=== PATIENT | female | born 2000 | race Caucasian/White ===

== ENCOUNTER 2021-10-17 09:31 | Outpatient (REF) | payer OTHER, BC, SELFPAY ==
[2021-10-17 09:43] LABS: MANUAL DIFF FLAG NO
[2021-10-17 10:23] LABS: Basophils Percent Auto 0.4 % (0-2); Eosinophils Absolute Auto 0.3 X10*3/uL (0.0-0.4); Eosinophils Percent Auto 3.7 % (0-4); Hematocrit 40.2 % (37.0-47.0); Hemoglobin 13.5 g/dl (12.0-16.0); Imm Gran Abs Auto 0.03 X10*3/uL (0.00-0.03); Imm Gran Pct Auto 0.4 % (0.0-0.4); Lymphocytes Absolute Auto 2.1 X10*3/uL (1.2-4.9); Mean Corpuscular HGB Conc 33.6 g/dl (31.0-35.0); Mean Corpuscular Hemoglobin 30.8 pg (27.0-33.0); Mean Corpuscular Volume 91.6 fL (80.0-98.0); Mean Platelet Volume 12.2 fL (9.4-12.3); Monocytes Absolute Auto 0.5 X10*3/uL (0.1-1.2); Neutrophils Absolute Auto 4.6 x10*3/uL (2.0-8.3); Neutrophils Percent Auto 60.5 % (45-73); Platelet Count 246 X10*3/uL (160-400); Red Blood Count 4.39 X10*6/uL (4.20-5.50); Red Cell Distribution Width 11.8 % (11.0-16.0); White Blood Count 7.6 X10*3/uL (4.8-10.8)
[2021-10-17 11:14] LABS: Alanine Aminotransferase 11 U/L (0-31); Albumin Level 4.4 g/dL (3.5-5.0); Alkaline Phosphatase 68 U/L (39-117); Anion Gap 13 (12-20); Aspartate Amino Transferase 15 U/L (5-31); Bilirubin Total 0.4 mg/dL (0.0-1.0); Blood Urea Nitrogen 13 mg/dL (9-16); Calcium 9.3 mg/dL (8.4-10.2); Carbon Dioxide 24 mmol/L (22-29); Chloride 106 mmol/L (96-108); Cholesterol 178 mg/dL; Estimated Glomerular Filt Rate > 60; Glucose Fasting 85 mg/dL (60-99); HDL Cholesterol 63 mg/dL; LDL Cholesterol Calculated 95 mg/dl; Sodium 139 mmol/L (135-145); Triglycerides 104 mg/dL
[2021-10-17 11:18] LABS: HIV AB/AG Nonreactive (Nonreactive); HIV Num 1 0.06 S/CO (0.00-0.99)
[2021-10-17 11:22] LABS: TSH reflex Free T4 0.82 uIU/mL (0.32-4.0)
[2021-10-17 11:33] LABS: ~HepC Num1 0.24 S/CO (0.00-0.79); ~Hepatitis C Antibody Nonreactive (Nonreactive)
== END 2021-10-17 09:32 | disposition home or self-care (01) ==
LOC: HO.LAB 09:31
PROVIDERS: Visit Provider Nurse Practitioner Family
DX: Z13.0 Encounter for screening for diseases of the blood and blood-forming organs and certain disorders involving the immune mechanism (principal); Z11.4 Encounter for screening for human immunodeficiency virus [HIV]; I10 Essential (primary) hypertension; E78.00 Pure hypercholesterolemia, unspecified; Z76.89 Persons encountering health services in other specified circumstances
CPT/HCPCS: 36415; 80053; 80061; 84443; 85025; 86803; 87389

== ENCOUNTER 2021-11-18 18:13 | Outpatient (REF) | payer OTHER, BC, SELFPAY ==
[2021-11-19 15:21] LABS: BV Int Neg Control Negative (Negative); BV Int Pos Control Positive (Positive)
== END 2021-11-18 18:14 | disposition home or self-care (01) ==
LOC: HO.LNP 18:13
PROVIDERS: Visit Provider Nurse Practitioner Family
DX: R30.0 Dysuria (principal); N89.8 Other specified noninflammatory disorders of vagina
CPT/HCPCS: 87086; 87480; 87510; 87660

== ENCOUNTER 2022-05-23 09:10 | Outpatient (REF) | payer OTHER, BC, SELFPAY ==
--- NOTE | ~2022-05-23 | US_ITS ---
EXAMINATION: US DIAGNOSTIC ULTRASOUND BREAST, RIGHT CLINICAL INFORMATION: 21-year-old female with recent focal redness lower outer right breast with some drainage. Symptoms improved. No prior imaging. Family history premenopausal breast cancer mother, other family members with breast cancer history. COMPARISON: None. TECHNIQUE: Ultrasound right breast is targeted to the area of clinical concern lower outer right breast. Grayscale imaging and color Doppler are performed without and with harmonics. FINDINGS: The site of clinical concern corresponds to a small discoid-shaped intradermal hypoechoic area measuring just under 2 mm in thickness and 5 x 7 mm across. Lesion is parallel with the skin. There is no surrounding hyperemia. No subdermal extension. No cystic or solid mass or architectural abnormality or focal duct ectasia. No edema tracking in soft tissue planes. Results are discussed with the patient at time of visit. Patient is advised to follow-up with her recent health care provider. High-risk mammography screening options discussed as well as availability of genetic testing. US/US breast RT limited IMPRESSION: -Small residual intradermal discoid shaped lesion 2 x 5 x 7 mm. No hyperemia or subdermal extension. ASSESSMENT: BI-RADS 2: Benign RECOMMENDATION: -Clinical follow-up with recent health care provider. -Genetic testing consultation may be considered. High risk mammography screening as clinical risk factors warrant.
== END 2022-05-23 09:11 | disposition home or self-care (01) ==
LOC: HO.MAMMO 09:10
PROVIDERS: Visit Provider Physician Assistant
DX: R23.4 Changes in skin texture (principal); Z80.3 Family history of malignant neoplasm of breast
CPT/HCPCS: 76642

== ENCOUNTER 2022-07-19 00:45 | Emergency (ER) | payer OTHER, BC, SELFPAY ==
[2022-07-19 00:48] VITALS: BP 112/67; PULSE 82; RESP 18; TEMP 36.7; O2SAT 97; BMI 41.5
--- NOTE | 2022-07-19 01:42 | ED_ITS ---
HPI - General Adult General Chief complaint: General Medical Stated complaint: Belly button piercing infected Time Seen by Provider: 07/19/22 01:38 History of Present Illness HPI narrative: Patient is a 21-year-old female has a history of having a belly button ring. Complaining of redness surrounding that ring. There was some discharge her yesterday. There is no systemic complaints. Patient has no history diabetes. Has an allergy to sulfa drugs Related Data Home Medications Medication Instructions Recorded Confirmed levonorgestrel 20 mcg/24 hours (8 intrauterine 05/17/22 07/17/22 yrs) 52 mg intrauterine device (Mirena) diphenhydramine HCl 25 mg tablet 25 mg PO BEDTIME PRN 07/17/22 07/17/22 (Benadryl Allergy) Previous Rx's Medication Instructions Recorded citalopram 10 mg tablet 10 mg PO DAILY #30 tabs 07/17/22 clindamycin HCl 300 mg capsule 300 mg PO Q6H 7 days #28 caps 07/19/22 Allergies Allergy/AdvReac Type Severity Reaction Status Date / Time Sulfa (Sulfonamide Allergy Intermediate Hives Verified 07/19/22 00:53 Antibiotics) Review of Systems Review of Systems: Positive redness to the belly button ring. No systemic complaints Yes all other systems are reviewed and are negative PMFSH Past Medical History Attestation statement: The following information was validated with the patient. Medical History Encounter to establish care (~10/17/21) History of chlamydia Surgical History History of root canal procedure Family History Family History Mother Heart disease Ovarian cyst Breast cancer, Onset Age: 35 Father High blood pressure Paternal Grandmother Breast cancer, Onset Age: 70 Maternal Grandmother Lung cancer, Onset Age: 70 Other Cancer Mental health disorder Substance use disorder Social History Social History Housing: Apartment Alcohol intake: current Alcohol intake frequency: a few times a week Patient Tobacco Use Status: Current everyday Tobacco user Tobacco use type: Cigarette Cigarette Packs Per Day: 0.5 Cigarettes Per Day: 10 e-Cigarette/Vaping Use: Never Used Second Hand Smoke Exposure: Yes Advance Directives: No Advance Directives Information Provided: Yes service: No Current occupational status: employed 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 Oriented X3. No acute distress. Eyes: Pupils equal, round and reactive to light. ENT: Pharynx normal. Neck: Normal inspection. Neck supple. No lymph nodes noted. No crepitus CVS: Normal heart rate and rhythm. Pulses normal. Normal S1 and S2 Respiratory: No respiratory distress. Breath sounds normal. No Wheezing. No rales Abdomen: Soft and nontender. No rigidity. No distention. good BS x4 Skin: The bellybutton ring is in place. There is a surrounding area of erythe ma. There is no fluctuance noted. The size of the erythema approximately 1.5 cm x 1.5 cm in size. Extremities: No lower extremity edema. Neurovascular intact to all extremities. No Lacerations. No Rash Neuro: Oriented X 3. No motor deficit. No sensory deficit. Moving all extermities. No slurred speech Medical Decision Making MDM Narrative Medical decision making narrative: Likely cellulitis surrounding a belly button ring that is been there. The belly button ring was removed. Will start patient on clinda. Patient to be discharged home. In stable condition. No evidence of abscess at this time. No fluctuance is noted Discharge Plan Discharge Clinical Impression: Cellulitis Patient Disposition: Home, Self-Care Instructions: Cellulitis (ED), Warm Compress or Soak (ED) Prescriptions: New clindamycin HCl 300 mg capsule 300 mg PO Q6H 7 Days Qty: 28 0RF No Action diphenhydramine HCl [Benadryl Allergy] 25 mg tablet 25 mg PO BEDTIME PRN citalopram 10 mg tablet 10 mg PO DAILY Qty: 30 1RF Mirena 20 mcg/24 hours (7 yrs) 52 mg intrauterine device intrauterine Referrals: [facility] [Physician] - 07/21/22
== END 2022-07-19 01:55 | disposition home or self-care (01) ==
PROVIDERS: Emergency Provider Emergency Medicine Emergency Medical Services
DX: L03.316 Cellulitis of umbilicus (principal); F17.210 Nicotine dependence, cigarettes, uncomplicated
CPT/HCPCS: 99282; 99283

== ENCOUNTER 2024-03-11 10:10 | Outpatient (AMB) | payer OTHER, SELFPAY ==
--- NOTE | 2024-03-11 10:14 | A.OFFVIS_ITS ---
Vital Signs 03/11/24 10:15 Height 5 ft 6 in Weight 256 lb BMI 41.3 BP 110/60 Intake Visit Reasons: New patient consult Iud removal and reinsertion Director Of Laboratory Operations Required: No Information Interpreted: clinical only Plastic Boat Buffer: Plastic Boat Buffer Present Allergies Sulfa (Sulfonamide Antibiotics) Allergy (Intermediate, Verified 03/11/24 10:16) Hives Medication List - Last Reconciled 03/11/24 by Vita Velasquez CNM diphenhydramine HCl (Benadryl Allergy) 25 mg PO BEDTIME PRN levonorgestrel (Mirena) intrauterine Is last menstrual period known: Yes (02/13/24) Do you need a note to return to daycare/school/sports/work: No HPI HPI New patient consult Iud removal and reinsertion: Details: Patient is here to discuss possible Mirena replacement versus possibly using other methods of control. She has had the Mirena since she was 16 she is pretty sure it is a Mirena and not a Kyleena. She did not get her. For the 1st few years but she has been getting regular menses including premenstrual symptoms/emotional changes etc. for least the last couple of years some periods are heavier than others some periods are employment specialist but they are regular. She tried to get a replaced at the 5 year point but they told her that it was good for 7 years and she has had a lot of anxiety about it since. She has family history of breast cancer her mom had breast cancer and some of her other older relatives as well. She moved from [place] [facility] and it is too far to go back to where she was. She does not have any other major health issues. She is in the same relationship for the last 6 years has no concerns she is considering future childbearing but not now. [facility] Medical History Encounter to establish care (~10/17/21) History of chlamydia Surgical History History of root canal procedure Family History Mother Heart disease Ovarian cyst Breast cancer, Onset Age: 35 Father High blood pressure Paternal Grandmother Breast cancer, Onset Age: 70 Maternal Grandmother Lung cancer, Onset Age: 70 Other Cancer Mental health disorder Substance use disorder Social History Housing: Apartment Alcohol intake: current Alcohol intake frequency: a few times a week Patient Tobacco Use Status: Current everyday Tobacco user Tobacco use type: Cigarette Cigarette Packs Per Day: 0.5 Cigarettes Per Day: 10 e-Cigarette/Vaping Use: Never Used Second Hand Smoke Exposure: Yes service: No Current occupational status: employed 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 Cognitive needs: No Hearing needs: No Vision needs: Yes (glasses) Female Reproductive History Menstrual Age of Menarche: 13 Duration of menses: 3-5 days control method: progestin IUCD Total pregnancies: 0 History of abnormal pap smear: No (no previous pap) Physical Exam Vital Signs: Last Vital Signs BP 110/60 03/11/24 10:15 BMI result Body Mass Index 41.3 Assessment & Plan Assessment & Plan (1) Family history of breast cancer: Code(s): Z80.3 - Family history of malignant neoplasm of breast Category: Medical (2) control counseling: Code(s): Z30.09 - Encounter for other general counseling and advice on contraception Category: Medical (3) Obesity, morbid, BMI 40.0-49.9: Code(s): E66.01 - Morbid (severe) obesity due to excess calories Category: Medical (4) Cervical cancer screening: Comment: Plan for Pap smear with 6 week IUD check after we replace her IUD. Code(s): Z12.4 - Encounter for screening for malignant neoplasm of cervix Category: Medical (5) Presence of 52 mg levonorgestrel-releasing intrauterine device (IUD): Comment: Has it for about 7 years returned to regular menses with complete hormonal symptoms taught for the last 2 years schedule replacement with next menses. Code(s): Z97.5 - Presence of (intrauterine) contraceptive device Category: Social Hx Plan -I reviewed with the patient, all of the currently common used methods of control that are available. We reviewed how they work in the body, how they are taken, common side effects, uncommon side effects, precautions, and contraindications. -Discussed also factors that influence their effectiveness and use, and womens satisfaction with the method. -Discussed how each are used, and drawbacks of each method as well. -Methods covered included: condoms, control pills, control patches, control rings, Depo-Provera, Nexplanon, Mirena and Kyleena IUDs, and ParaGard IUDs. All of the above methods were covered in great detail including their side effect profiles and common experiences that women have and ways to mitigate against the negative experiences including attention to diet and exercise patient's with bleeding challenges that may occur her and efforts to time the initiation of the method to this start of the menstrual period. Also discussed screening and issues around her family history of breast cancer and she is going to investigate her family history some more and discuss it more with her primary care provider discussed possible genetic Screening as well Also discussed the relationship between weight and menses and all the possible issues with irregular bleeding and formation of cysts and the into relationship between hormones and obesity discussed that this is a great time in her life to work on the weight loss while she still is healthy. Also major early discussed the issues with the Mirena and its length of time for use and newer recommendations that it can be used for up to 8 years however the fact that she has returned to normal cycles with all of their hormonal fluctuations and symptoms indicates a high likelihood that she could be ovulating and I do not recommend that she depend on it anymore and she should use condoms until were able to replace it she was tearful during the visit and it is likely that she is going to be getting her menses very soon she feels like it might be coming in fact today if it does come today I recommend she call today and see if we can schedule a Mirena replacement for Thursday if it comes on the weekend she should call 1st thing Thursday morning but we would not be able to get her in Thursday but in any case use condoms until we are able to replace it as close to the start of her next menses as possible . She has never had a Pap smear in that can be done at the 6 week IUD check visit,. Coding Level of Care Code New Pt Level 4 (16828) Diagnoses Family history of breast cancer Z80.3 control counseling Z30.09 Obesity, morbid, BMI 40.0-49.9 E66.01 Cervical cancer screening Z12.4 Presence of 52 mg levonorgestrel-releasing intrauterine device (IUD) Z97.5
[2024-03-11 10:15] VITALS: BP 110/60; BMI 41.3
== END 2024-03-11 10:52 | disposition home or self-care (01) ==
LOC: HO.HWSM 10:10
PROVIDERS: PCP Internal Medicine; Visit Provider Advanced Practice Midwife
DX: Z80.3 Family history of malignant neoplasm of breast (principal); Z30.09 Encounter for other general counseling and advice on contraception; E66.01 Morbid (severe) obesity due to excess calories; Z12.4 Encounter for screening for malignant neoplasm of cervix; Z97.5 Presence of (intrauterine) contraceptive device
CPT/HCPCS: 99204

== ENCOUNTER → 2024-03-11 10:10 | Outpatient (BNVA) | payer OTHER, SELFPAY | PROVIDERS: PCP Internal Medicine; Visit Provider Advanced Practice Midwife ==

== ENCOUNTER 2024-10-13 09:31 | Outpatient (REF) | payer OTHER, SELFPAY ==
--- OUTSIDE RECORDS SUMMARY | 2024-10-13 12:29 | XMS_ITS | Encounter Summary ---
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 Procedure Name Priority Date/Time Associated Diagnosis Comments CHLAMYDIA TRACHOMATIS/N. GONORRHOEAE (GC) RNA, TMA (URINE) Routine 02/27/2017 11:15 AM EDT Screening for STD (sexually transmitted disease) HCG, TOTAL, QL Routine 02/27/2017 11:15 AM EDT Irregular menses documented in this encounter Results * Due to [place] [employer] law, this organization might not be sharing negative HIV tests. * CHLAMYDIA TRACHOMATIS/N. GONORRHOEAE (GC) RNA, TMA (URINE) (02/27/2017 11:15 AM EDT) Chlamydia trachomatis rRNA NOT DETECTED NOT DETECTED [facility] Neisseria Gonorrhoeae rRNA NOT DETECTED NOT DETECTED [facility] COMMENT SEE NOTE [facility] Comment: This test was performed using the APTIMA COMBO2 Assay ([employer].). The analytical performance characteristics of this assay, when used to test SurePath specimens have been determined by [employer]. 02/27/2017 11:1 5 AM EDT 02/28/2017 1:20 AM EDT Narrative Resulting Agency Comment [id number] us Sandrine Klejesus [facility] Final Resul t Performing Organization Address [facility] de Phone Number [facility] [address] [place] [address] * HCG, TOTAL, QL (02/27/2017 11:15 AM EDT) HCG, Qualitative (Screen) NEGATIVE [facility] Comment: Reference Range Non-: Negative : ? Positive 02/27/2017 11:1 5 AM EDT 02/28/2017 1:20 AM EDT Narrative Resulting Agency Comment [id number] us Sandrinealy [facility] SAME DAY RESULT Final R esult Performing Organization Address [facility] Co de Phone Number [facility] [address] [place] [address] documented in this encounter Visit Diagnoses Diagnosis Irregular menses Irregular menstrual cycle Screening for STD (sexually transmitted disease) Screening examination for venereal disease documented in this encounter Care Teams Cut Roll Machine Operator Relationship Specialty Start Date End Date Luis Carlos Huizar MD [facility] [address] [place] [address] PCP - General Pediatrics 05/15/15 02/20/20 Christa Macedo MD [facility] [address] [place] [address] PCP - General Pediatrics 02/21/20 documented as of this encounter
--- OUTSIDE RECORDS SUMMARY | 2024-10-13 12:29 | XMS_ITS | Encounter Summary ---
Author Organization [facility] Address [address] [place] [address] Care Team Providers Care Pipe Finisher Name Role Phone Luis Carlos Huizar MD Primary Care Provider [phone] Christa Macedo MD Primary Care Provider [phone] Encounter Details Date Type Department Care Team (Late st Contact Info) Description 04/06/2017 Orders Only [place] DOOR TO DOOR LEAD GENERATION [address] [place] [address] Sandrine Edgar CRNP [address] [place] [address] Social History Tobacco Use Types Packs/Day Years [...] of this encounter Procedures * Due to [facility] law, this organization might not be sharing negative HIV tests. Procedure Name Priority Date/Time Associated Diagnosis Comments BV/VAGINITIS PANELDNA PROBE(AFFIRM) Routine 04/06/2017 4:44 PM EDT Vaginal odor documented in this encounter Results * Due to [place] [employer] law, this organization might not be sharing [...] 11:34 PM EDT Narrative Resulting Agency Comment [id number] us Sandrine [facility] Final Resul t Performing Organization Address City/State/[facility] Co de Phone Number [facility] [address] [place] [address] documented in this encounter Visit Diagnoses Diagnosis Vaginal odor Unspecified symptom associated with female genital organs documented in this encounter Care Teams Pipe Finisher Relationship Specialty Start Date End Date Luis Carlos Huizar MD [facility] [address] [place] [address] PCP - General Pediatrics 05/15/15 02/20/20 Christa Macedo MD [facility] [address] [place] [address] PCP - General Pediatrics 02/21/20 documented as of this encounter
--- OUTSIDE RECORDS SUMMARY | 2024-10-13 12:29 | XMS_ITS | Clinical Summary ---
Author Organization [facility] Address [address] [place] [address] Care Team Providers Care Supervisor Fireworks Assembly Name Role Phone Christa Macedo MD Primary Care Provider [phone] Allergies Active Allergy Reactions Criticality Noted Date [...] complete this topic Procedures * Due to [place] [employer] law, this organization might not be sharing negative HIV tests. Procedure Name Priority Date/Time Associated Diagnosis Comments CHLAMYDIA TRACHOMATIS/N. GONORRHOEAE (GC) RNA, TMA (URINE) Routine 02/21/2020 6:26 PM EDT STD (female) from Last 3 Months or Most Recently Relevant to Health Maintenance Results * Due to [place] [employer] law, this organization might not be sharing negative HIV tests. * CHLAMYDIA TRACHOMATIS/N. GONORRHOEAE (GC) RNA, TMA (URINE) (02/21/2020 6:26 PM EDT) Chlamydia trachomatis rRNA NOT DETECTED NOT DETECTED [facility] Neisseria Gonorrhoeae rRNA NOT DETECTED NOT DETECTED [facility] COMMENT SEE NOTE [facility] Comment: The analytical performance characteristics of this assay, when used to test SurePath(TM) specimens have been determined by [employer]. The modifications have not been cleared or approved by the FDA. This assay has been validated pursuant to the CLIA regulations and is used for clinical purposes. For additional information, please refer to https://education.Sagence/faq/MDY013 (This link is being provided for information/ educational purposes only.) 02/21/2020 6:26 PM EDT 02/22/2020 12:06 AM EDT Narrative Resulting Agency Comment [id number] Consuelo Fro[facility] Final Result [facility] [address] [place] [address] from Last 3 Months or Most Recently Relevant to Health Maintenance Insurance [employer] FEE FOR SERVICE PPO Care Teams Supervisor Fireworks Assembly Relationship Specialty Start Date End Date Christa Macedo MD [facility] [address] [facility] [address] [place] [address] PCP - General Pediatrics 02/21/20
--- OUTSIDE RECORDS SUMMARY | 2024-10-13 12:29 | XMS_ITS | Encounter Summary ---
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 Procedure Name Priority Date/Time Associated Diagnosis Comments CHLAMYDIA TRACHOMATIS/N. GONORRHOEAE (GC) RNA, TMA (APTIMA GENITAL SWAB) Routine 07/26/2015 4:55 PM EST Screening for STD (sexually transmitted disease) BV/VAGINITIS PANELDNA PROBE(AFFIRM) Routine 07/26/2015 4:55 PM EST Screening for STD (sexually transmitted disease) documented in this encounter Results * Due to [place] [employer] law, this organization might not be sharing negative HIV tests. * (ABNORMAL) CHLAMYDIA TRACHOMATIS/N. GONORRHOEAE (GC) RNA, TMA (APTIMA GENITAL SWAB) (07/26/2015 4:55 PM EST) Chlamydia trachomatis rRNA DETECTED(A) NOT DETECTED [facility] Comment: {CHLAMYDIA TRACHOMATIS RNA, TMA {[id number]) A positive CT or NG Nucleic Acid Amplification Test (NAAT) result should be interpreted in conjunction with other laboratory and clinical data available to the clinician. If clinically indicated, further testing can be performed on the same sample using an alternate molecular target. To order alternate target test use 26411 (C. trachomatis) or [address]9515 (N. gonorrhoeae). Neisseria Gonorrhoeae rRNA NOT DETECTED NOT DETECTED [facility] Comment:{NEISSERIA GONORRHOE AE RNA, TMA {[id number]) COMMENT SEE NOTE [facility] Comment: {COMMENT {[id number]) This test was performed using the APTIMA COMBO2 Assay ([employer] The analytical performance characteristics of this assay, when used to test SurePath specimens have been determined by [facility]. 07/26/2015 4:55 PM EST 07/26/2015 9:21 PM EST Narrative Resulting Agency Comment [id number] us Sandrine Tala [facility] Final Resul t Performing Organization Address [facility] Co de Phone Number [facility] [address] [place] [address] * BV/VAGINITIS PANELDNA PROBE (07/26/2015 4:55 PM EST) Trichomonas vaginalis rRNA (Genital) NOT DETECTED NOT DETECTED [facility] Comment:{TRICHOMONAS: {[id number]) Gardnerella vaginalis rRNA (Genital) NOT DETECTED NOT DETECTED [facility] Comment:{GARDNERELLA: {[id number]) Kristi sp rRNA (Vag) NOT DETECTED NOT DETECTED [facility] Comment:{KRISTI: {[id number]) 07/26/2015 4:55 PM EST 07/26/2015 9:21 PM EST Narrative Resulting Agency Comment [id number] us Sandrine Tala [facility] Final Resul t Performing Organization Address [facility] Co de Phone Number [facility] [address] [place] [address] documented in this encounter Visit Diagnoses Diagnosis Screening for STD (sexually transmitted disease) Screening examination for venereal disease documented in this encounter Care Teams Smoke And Flame Specialist Relationship Specialty Start Date End Date Luis Carlos Huizar MD [facility] [address] [place] [address] PCP - General Pediatrics 05/15/15 02/20/20 Christa Macedo MD [facility] [address] [place] [address] PCP - General Pediatrics 02/21/20 documented as of this encounter
--- OUTSIDE RECORDS SUMMARY | 2024-10-13 12:29 | XMS_ITS | Encounter Summary ---
Author Organization [facility] Address [address] [place] [address] Care Team Providers Care Microbiological Analyst Name Role Phone Luis Carlos Huizar MD Primary Care Provider [phone] Christa Macedo MD Primary Care Provider [phone] Encounter Details Date Type Department Care Team (Late st Contact Info) Description 11/22/2019 Orders Only [facility] SCHOOL PROGRAM DIRECTOR [address] [place] [address] Sandrine Edgar CRNP [address] [place] [address] Social History Tobacco Use Types Packs/Day Years [...] of this encounter Procedures * Due to [place] [employer] law, this organization might not be sharing negative HIV tests. Procedure Name Priority Date/Time Associated Diagnosis Comments CHLAMYDIA TRACHOMATIS/N. GONORRHOEAE (GC) RNA, TMA (APTIMA GENITAL SWAB) Routine 11/22/2019 2:03 PM EDT Postcoital bleeding BV/VAGINITIS PANELDNA PROBE(AFFIRM) Routine 11/22/2019 2:03 PM EDT Vaginal discharge documented in this encounter Results * Due to [place] [employer] law, this organization might not be sharing negative HIV tests. * BV/VAGINITIS PANELDNA PROBE (11/22/2019 2:03 PM EDT) Trichomonas vaginalis rRNA (Genital) NOT DETECTED NOT DETECTED [facility] Gardnerella vaginalis rRNA (Genital) NOT DETECTED NOT DETECTED [facility] Kristi sp rRNA (Vag) NOT DETECTED NOT DETECTED [facility] 11/22/2019 2:03 PM EDT 11/22/2019 10:48 PM EDT Narrative Resulting Agency Comment [id number] us Sandrine [facility] Final Resul t Performing Organization Address City/State/[facility] Co de Phone Number [facility] [address] [place] [address] * CHLAMYDIA TRACHOMATIS/N. GONORRHOEAE (GC) RNA, TMA (APTIMA GENITAL SWAB) (11/22/2019 2:03 PM EDT) Chlamydia trachomatis rRNA NOT DETECTED NOT DETECTED [facility] Neisseria Gonorrhoeae rRNA NOT DETECTED NOT DETECTED [facility] COMMENT SEE NOTE [facility] Comment: The analytical performance characteristics of this assay, when used to test SurePath(TM) specimens have been determined by [employer]. The modifications have not been cleared or approved by the FDA. This assay has been validated pursuant to the CLIA regulations and is used for clinical purposes. For additional information, please refer to https://education.Streyner/faq/PVA953 (This link is being provided for information/ educational purposes only.) 11/22/2019 2:03 PM EDT 11/22/2019 10:48 PM EDT Narrative Resulting Agency Comment [id number] us Sandrine Tala [facility] Final Resul t [facility] [address] [place] [address] documented in this encounter Visit Diagnoses Diagnosis Postcoital bleeding Vaginal discharge Leukorrhea, not specified as infective documented in this encounter Care Teams Microbiological Analyst Relationship Specialty Start Date End Date Luis Carlos Huizar MD [facility] [address] [place] [address] PCP - General Pediatrics 05/15/15 02/20/20 Christa Macedo MD [facility] [address] [place] [address] PCP - General Pediatrics 02/21/20 documented as of this encounter
[2024-10-14 12:03] LABS: Bacterial Vaginosis PCR POSITIVE (Negative); Candida Group PCR NOT DETECTED (Not Detect); Candida glab krusei PCR NOT DETECTED (Not Detect); Trichomonas vaginalis PCR NOT DETECTED (Not Detect)
[2024-10-14 12:32] LABS: CT PCR NOT DETECTED (Not Detect.); NG PCR NOT DETECTED (Not Detect.)
== END 2024-10-13 09:32 | disposition home or self-care (01) ==
LOC: HO.LAB 09:31
PROVIDERS: PCP Internal Medicine; Visit Provider Advanced Practice Midwife
DX: Z30.433 Encounter for removal and reinsertion of intrauterine contraceptive device (principal); N89.8 Other specified noninflammatory disorders of vagina; E66.01 Morbid (severe) obesity due to excess calories; Z20.2 Contact with and (suspected) exposure to infections with a predominantly sexual mode of transmission; Z11.3 Encounter for screening for infections with a predominantly sexual mode of transmission
CPT/HCPCS: 58300; 58301; 81025; 81515; 87491; 87591; J7298

== ENCOUNTER 2024-10-13 09:31 | Outpatient (AMB) | payer OTHER, SELFPAY ==
[2024-10-13 09:36] VITALS: BP 118/68; BMI 40.8
--- NOTE | 2024-10-13 09:36 | MHC.OFFVIS ---
Vital Signs 10/13/24 09:36 Height 5 ft 6 in Weight 253 lb BMI 40.8 BP 118/68 Intake Visit Reasons: Mirena removal/Placement Correspondence Review Clerk Required: No Correspondence Review Clerk Services: Correspondence Review Clerk Present Information Interpreted: clinical only Cinnamon Grinder: Cinnamon Grinder Present Allergies Sulfa (Sulfonamide Antibiotics) Allergy (Intermediate, Verified 10/13/24 09:37) Hives Medication List - Last Reconciled 10/13/24 by Vita Velasquez CNM diphenhydramine HCl (Benadryl Allergy) 25 mg PO BEDTIME PRN levonorgestrel (Mirena) intrauterine Is last menstrual period known: No (IUD) HPI HPI Mirena removal/Placement: Details: For a Mirena replacement. 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 She took the day off she tends to work 2nd shift. She has never had a Pap smear she has primary care provider but has not been able to get scheduled to see her said things were very confusing with the locations with the office and she is going to try again. [facility] Medical History Encounter to establish care (~10/17/21) History of chlamydia Surgical History History of root canal procedure Family History Mother Heart disease Ovarian cyst Breast cancer, Onset Age: 35 Father High blood pressure Paternal Grandmother Breast cancer, Onset Age: 70 Maternal Grandmother Lung cancer, Onset Age: 70 Other Cancer Mental health disorder Substance use disorder Social History Housing: Apartment Alcohol intake: current Alcohol intake frequency: a few times a week Patient Tobacco Use Status: Current everyday Tobacco user Tobacco use type: Cigarette Cigarette Packs Per Day: 0.5 Cigarettes Per Day: 10 e-Cigarette/Vaping Use: Never Used Second Hand Smoke Exposure: Yes service: No Current occupational status: employed 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 Uterus small anteverted mobile nontender adnexa nontender not enlarged good muscle tone. External Female Exam: normal external appearance Speculum Exam - Vagina: normal appearance of the vagina and normal vaginal discharge Speculum Exam - Cervix: normal appearance of the cervix Bimanual exam- vagina & uterus: normal bimanual exam, uterine size normal, consistency normal, uterine mobility normal, uterine shape normal and non-tender Bimanual Exam- Adnexa, other: normal adnexae, no masses and No adnexal tenderness Office Procedures IUD Insert/Removal Details Details: ---Patient is here for her IUD removal and insertion. Speculum exam initially placed in order to obtain testing for gonorrhea chlamydia trichomoniasis bacterial vaginosis and yeast. Bimanual exam was done. Her uterus is firm, nontender, and appropriate sized, and is anteverted mobile nontender . Speculum was replaced. The IUD strings were grasped with ring forceps, and as patient coughed, the IUD was removed easily with 1 tug. ---The cervix was recleaned with Betadine. Tenaculum was placed on the cervix slowly to minimize cramping. The uterus was sounded slowly and gently she show a measurement of 7 1/2 cm. The IUD was removed from its package, after checking identifying information and lot dates and expiration dates, and the Mirena IUS was gently inserted into the os, as per the IUD insertion procedure. The strings were then trimmed to 3 centimetres. The tenaculum was removed and gentle pressure applied with a swab, until any bleeding ( none) subsided from the tenaculum sites. The speculum was gently removed. The patient sat up. I Reviewed what to expect, and what indications would necessitate a call. Pt to call for fever, untoward pain or cramping. I reviewed any appropriate backup method. I recommend no sex for several days and she said she would be happy to wait a week and as suggested that would be great and reviewed the signs and symptoms of infection or any sign of a complication and she will call for that. We are going to see her about 6 weeks for an IUD checkup and her 1st annual and Pap in any other discussions Pt to return for recheck as scheduled. 90018-CJH Insertion 16064-NES Removal Procedure code (CPT) selection complete Office Meds Mirena 21 mcg/24 hr (up to 8 years) 52 mg intrauterine device Performing Provider: Vita Velasquez CNM [facility] Administered by: Flaco Ling CMA on 10/13/24 10:36 Dose Route Admin Location Dispensed Lot Number Expiration Date [facility] [employer] 1 device intrauterine 1 ea [id number] 12/14/26 Results AMB Test Urine AMB Test Urine Negative Last Edit by Flaco Ling CMA on 10/13/24 10:02 Results Reviewed Results Reviewed: Laboratory Last Values [facility] Negative 10/13/24 10:00 Assessment & Plan Assessment & Plan (1) Family history of breast cancer: Comment: Her mother, around age 40. She will investigate more about whether or not mother had BRCA testing.. Code(s): Z80.3 - Family history of malignant neoplasm of breast Category: Medical (2) Encounter for IUD removal and reinsertion: Code(s): Z30.433 - Encounter for removal and reinsertion of intrauterine contraceptive device Category: Medical (3) Cervical cancer screening: Comment: Plan for Pap smear with 6 week IUD check after we replace her IUD. Code(s): Z12.4 - Encounter for screening for malignant neoplasm of cervix Category: Medical (4) Presence of 52 mg levonorgestrel-releasing intrauterine device (IUD): Comment: Has it for about 7 years returned to regular menses with complete hormonal symptoms taught for the last 2 years schedule replacement with next menses.;; that was 7 months ago- she never got a period, replacing Mirena IUD today 10/13/2024. Code(s): Z97.5 - Presence of (intrauterine) contraceptive device Category: Social Hx (5) Obesity, morbid, BMI 40.0-49.9: Comment: Address further at future visits. Code(s): E66.01 - Morbid (severe) obesity due to excess calories Category: Medical (6) Encounter for screening examination for sexually transmitted disease: Code(s): Z11.3 - Encounter for screening for infections with a predominantly sexual mode of transmission Category: Medical Plan See HPI and also the individual sections above and the removal insertion process procedure under procedures very smooth insertion IUD that patient tolerated well talking through the procedure approved to be very helpful for her. We reviewed her excellent questions and we will see her for her full annual exam 1st Pap smear and IUD checkup in about 6 weeks. As she was leaving she inquired about screening for breast cancer because her mother had breast cancer when she was about age 40. Discussed that this is a question also for her primary care provider but we can discuss it further but 1 suggestion I have for her in the meantime is that she investigate whether not her mother received BRCA testing does that would influence screening and recommendations going forward she may need referral for further counseling screening for early screening secondary to family history. She is also going to be trying to establish a visit with her primary care provider and we will discuss with them as well. Reviewed issues around Mirena again. She may take up to 3 Advil p.r.n. for cramping if she experiences any today but always have food in her stomach 1st. Timeframe/Date Comment RTC for full 6 week checkup and full annual and 1st Pap Orders: Orders AMB IUD Insertion/Removal - Practice Supplied Today Z30.430 - Encounter for insertion of intrauterine contraceptive device AMB HCG Urine Test Today Z32.02 - Encounter for test, result negative Bacterial Vaginosis Panel Today N89.8 - Other specified noninflammatory disorders of vagina CT NG by PCR Today N89.8 - Other specified noninflammatory disorders of vagina, Z20.2 - Contact with and (suspected) exposure to infections with a predominantly sexual mode of transmission Coding Level of Care Code Est Pt Level 3 (87279) Diagnoses Family history of breast cancer Z80.3 Encounter for IUD removal and reinsertion Z30.433 Cervical cancer screening Z12.4 Presence of 52 mg levonorgestrel-releasing intrauterine device (IUD) Z97.5 Obesity, morbid, BMI 40.0-49.9 E66.01 Encounter for screening examination for sexually transmitted disease Z11.3 CPT Codes Details - CPT: 61573-RPC Insertion ([id number]) Details - CPT: 18652-LIN Removal ([id number]) Time Spent (min) 45 Comment Review procedure, answering questions, discussing care going forward...
--- OUTSIDE RECORDS SUMMARY | 2024-10-13 10:45 | XMS_ITS | Encounter Summary ---
Author Organization [facility] Address [address] [place] [address] Care Team Providers Care Dry Can Tender Name Role Phone Luis Carlos Huizar MD Primary Care Provider [phone] Christa Macedo MD Primary Care Provider [phone] Encounter Details Date Type Department Care Team (Late st Contact Info) Description 04/06/2017 Orders Only [place] FARM MARKETER [address] [place] [address] Sandrine Edgar CRNP [address] [place] [address] Social History Tobacco Use Types Packs/Day Years Used Date Smoking Tobacco: Never Smokeless Tobacco: Never Alcohol Use Standard Drinks/Week Comments No 0 (1 standard drink = 0.6 oz pur e alcohol) Comments Unknown Sex and Gender Information Value Date Recorded Sex Assigned at Not on file Legal Sex Female 3:48 PM EDT Gender Identity Not on file Sexual Orientation Not on file 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 Pt symptomatic at visit with odor and discharge. TE for rx started Routed to provider for review documented in this encounter Plan of Treatment Not on file documented as of this encounter Procedures * Due to [facility] law, this organization might not be sharing negative HIV tests. Procedure Name Priority Date/Time Associated Diagnosis Comments BV/VAGINITIS PANELDNA PROBE(AFFIRM) Routine 04/06/2017 4:44 PM EDT Vaginal odor documented in this encounter Results * Due to [place] [employer] law, this organization might not be sharing negative HIV tests. * (ABNORMAL) BV/VAGINITIS PANELDNA PROBE (04/06/2017 4:44 PM EDT) Trichomonas vaginalis rRNA (Genital) NOT DETECTED NOT DETECTED [facility] Gardnerella vaginalis rRNA (Genital) DETECTED(A) NOT DETECTED [facility] Comment: Increased levels of G. vaginalis may not be significant in the absence of signs and symptoms of bacterial vaginosis. Kristi sp rRNA (Vag) NOT DETECTED NOT DETECTED [facility] 04/06/2017 4:44 PM EDT 04/06/2017 11:34 PM EDT Narrative Resulting Agency Comment [id number] us Sandrine [facility] Final Resul t Performing Organization Address City/State/[facility] Co de Phone Number [facility] [address] [place] [address] documented in this encounter Visit Diagnoses Diagnosis Vaginal odor Unspecified symptom associated with female genital organs documented in this encounter Care Teams Dry Can Tender Relationship Specialty Start Date End Date Luis Carlos Huizar MD [facility] [address] [place] [address] PCP - General Pediatrics 05/15/15 02/20/20 Christa Macedo MD [facility] [address] [place] [address] PCP - General Pediatrics 02/21/20 documented as of this encounter
--- OUTSIDE RECORDS SUMMARY | 2024-10-13 10:45 | XMS_ITS | Encounter Summary ---
Author Organization [facility] Address [address] [place] [address] Care Team Providers Care Electric Accounting Machine Operator Name Role Phone Luis Carlos Huizar MD Primary Care Provider [phone] Christa Macedo MD Primary Care Provider [phone] Encounter Details Date Type Department Care Team (Late st Contact Info) Description 11/22/2019 Orders Only [facility] BODY MAKER MACHINE SETTER [address] [place] [address] Sandrine Edgar CRNP [address] [place] [address] Social History Tobacco Use Types Packs/Day Years Used Date Smoking Tobacco: Former Smokeless Tobacco: Never Alcohol Use Standard Drinks/Week Comments No 0 (1 standard drink = 0.6 oz pur e alcohol) Comments No Sex and Gender Information Value Date Recorded Sex Assigned at Not on file Legal Sex Female 3:48 PM EDT Gender Identity Not on file Sexual Orientation Not on file 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 No / Unsure 11/22/2019 11:27 AM EDT documented as of this encounter Progress Notes * Ellen Echavarria RN - 11/22/2019 2:03 PM EDT To provider for review. Result letter sent. documented in this encounter Plan of Treatment Not on file documented as of this encounter Procedures * Due to [place] [employer] law, this organization might not be sharing negative HIV tests. Procedure Name Priority Date/Time Associated Diagnosis Comments CHLAMYDIA TRACHOMATIS/N. GONORRHOEAE (GC) RNA, TMA (APTIMA GENITAL SWAB) Routine 11/22/2019 2:03 PM EDT Postcoital bleeding BV/VAGINITIS PANELDNA PROBE(AFFIRM) Routine 11/22/2019 2:03 PM EDT Vaginal discharge documented in this encounter Results * Due to [place] [employer] law, this organization might not be sharing negative HIV tests. * BV/VAGINITIS PANELDNA PROBE (11/22/2019 2:03 PM EDT) Trichomonas vaginalis rRNA (Genital) NOT DETECTED NOT DETECTED [facility] Gardnerella vaginalis rRNA (Genital) NOT DETECTED NOT DETECTED [facility] Kristi sp rRNA (Vag) NOT DETECTED NOT DETECTED [facility] 11/22/2019 2:03 PM EDT 11/22/2019 10:48 PM EDT Narrative Resulting Agency Comment [id number] us Sandrine [facility] Final Resul t Performing Organization Address City/State/[facility] Co de Phone Number [facility] [address] [place] [address] * CHLAMYDIA TRACHOMATIS/N. GONORRHOEAE (GC) RNA, TMA (APTIMA GENITAL SWAB) (11/22/2019 2:03 PM EDT) Chlamydia trachomatis rRNA NOT DETECTED NOT DETECTED [facility] Neisseria Gonorrhoeae rRNA NOT DETECTED NOT DETECTED [facility] COMMENT SEE NOTE [facility] Comment: The analytical performance characteristics of this assay, when used to test SurePath(TM) specimens have been determined by [employer]. The modifications have not been cleared or approved by the FDA. This assay has been validated pursuant to the CLIA regulations and is used for clinical purposes. For additional information, please refer to https://education.L[employer]/faq/OMR132 (This link is being provided for information/ educational purposes only.) 11/22/2019 2:03 PM EDT 11/22/2019 10:48 PM EDT Narrative Resulting Agency Comment [id number] us Sandrine Tala [facility] Final Resul t [facility] [address] [place] [address] documented in this encounter Visit Diagnoses Diagnosis Postcoital bleeding Vaginal discharge Leukorrhea, not specified as infective documented in this encounter Care Teams Electric Accounting Machine Operator Relationship Specialty Start Date End Date Luis Carlos Huizar MD [facility] [address] [place] [address] PCP - General Pediatrics 05/15/15 02/20/20 Christa Macedo MD [facility] [address] [place] [address] PCP - General Pediatrics 02/21/20 documented as of this encounter
--- OUTSIDE RECORDS SUMMARY | 2024-10-13 10:45 | XMS_ITS | Clinical Summary ---
Author Organization [facility] Address [address] [place] [address] Care Team Providers Care Belt Repairer Name Role Phone Christa Macedo MD Primary Care Provider Allergies Active Allergy Reactions Criticality Noted Date Comments Sulfa Antibiotics Maculopapular Rash,Nausea/GI Upset 07/26/2015 Medications No known medications Active Problems Problem Noted Date Diagnosed Date Contraception management 07/26/2015 Immunizations Name Administration Dates Next Due COVID-19, mRNA (Moderna Pre Fall 2022) Monovalent, 100 mcg/0.5 ml or 50 mcg/0.25 ml dose 09/15/2020 HPV4 (Gardasil 4) 10/10/2013,06/08/2013,11/05/19 13 Hep A (pedi) 12/03/2016 Hep B (pedi) 10/05/2001,2000,2000 Hib (PRP-OMP) 02/03/2002, 1,03/09/2001,01/04 IPV 12/27/2004, 2,03/09/2001,01/04 Influenza,injectable,quad,preservative 0 Influenza,seasonal,trivalent ,preservat caty (FLUZONE MDV) 06/03/2012 MMR 12/27/2004,11/09/2001 Meningococcal ACWY (Menactra) 01/25/2018, 013 Tdap 11/04/2012 Varicella 11/04/2012,11/09/2001 Family History Medical History Relation Name Comments Hypertension Father Thyroid Disorder Mother Cancer (?Type) Paternal grandfather Diabetes Paternal grandfather Heart Disorder Paternal grandfather Relation Name Status Comments Brother Alive Father Alive Maternal grandfather Maternal grandmother Alive Mother Alive Paternal grandfather Alive Paternal grandmother Alive Social History Tobacco Use Types Packs/Day Years Used Date Smoking Tobacco: Former Smokeless Tobacco: Never Alcohol Use Standard Drinks/Week Comments No 0 (1 standard drink = 0.6 oz pur e alcohol) Intimate Partner Violence Answer Date R ecorded Fear of Current or Ex-Partner Not on file Emotionally Abused Not on file 04/08/2023 Physically Abused Not on file 04/08/2023 Sexually Abused Not on file 04/08/2023 Feel Safe at Home Not on file 04/08/2023 Comments No Sex and Gender Information Value Date Recorded Sex Assigned at Not on file Legal Sex Female 3:48 PM EDT Gender Identity Not on file Sexual Orientation Not on file Occupation Industry Job Start Date Job End Date [employer]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 Not on file Not on f ile Not on file Last Filed Vital Signs Vital Sign Reading Time Taken Comments Blood Pressure 123/79 02/21/2020 2:18 PM EDT Pulse 85 02/21/2020 2:18 PM EDT Temperature 36.4 ??C (97.6 ??F) 02/21/2020 2:18 PM ED T Respiratory Rate - - Oxygen Saturation 95% 02/21/2020 2:18 PM EDT Inhaled Oxygen Concentration - - Weight 88.3 kg (194 lb 9.6 oz) 11/22/2019 11:47 AM EDT Height 167.6 cm (5' 6 ) 11/22/2019 11:47 AM EDT Body Mass Index 31.41 11/22/2019 11:47 AM EDT Plan of Treatment Health Maintenance Due Date Last Done Comments Hepatitis C Screening 2000 Pap Smear 2016 Hep A (2 of 2 - 2-dose series) 06/04/2017 12/03/2016 Chlamydia 02/20/2021 02/21/2020, 02/2020, 02/27/2017, Additional history exists DTaP/Tdap/Td (2 - Td or Tdap) 11/04/2022 11/04/2012 COVID-19 Vaccine ( season) 2024 09/15/2020 Influenza (#1) 2024 05/07/2020, 06/03/2012 Zoster (Shingrix) (1 of 2) 2050 11/04/2012, Hep B Completed 10/05/2001, 11/15, 2000 Hib Completed 02/03/2002, 04/18, 03/09/2001, Additional history exists HPV Vaccine Completed 10/10/2013, 05/18, 11/04/2012 Meningococcal ACWY Completed 01/25/2018, 11/04/2012 Pneumococcal Aged Out No longer eligi ble based on patient's age to complete this topic Procedures * Due to [place] [employer] law, this organization might not be sharing negative HIV tests. Procedure Name Priority Date/Time Associated Diagnosis Comments CHLAMYDIA TRACHOMATIS/N. GONORRHOEAE (GC) RNA, TMA (URINE) Routine 02/21/2020 6:26 PM EDT STD (female) from Last 3 Months or Most Recently Relevant to Health Maintenance Results * Due to [place] [employer] law, this organization might not be sharing negative HIV tests. * CHLAMYDIA TRACHOMATIS/N. GONORRHOEAE (GC) RNA, TMA (URINE) (02/21/2020 6:26 PM EDT) Chlamydia trachomatis rRNA NOT DETECTED NOT DETECTED [facility] Neisseria Gonorrhoeae rRNA NOT DETECTED NOT DETECTED [facility] COMMENT SEE NOTE [facility] Comment: The analytical performance characteristics of this assay, when used to test SurePath(TM) specimens have been determined by [employer]. The modifications have not been cleared or approved by the FDA. This assay has been validated pursuant to the CLIA regulations and is used for clinical purposes. For additional information, please refer to https://education.DFT Microsystems/faq/FDS089 (This link is being provided for information/ educational purposes only.) 02/21/2020 6:26 PM EDT 02/22/2020 12:06 AM EDT Narrative Resulting Agency Comment [id number] Cons[facility] Final Result [facility] [address] [place] [address] from Last 3 Months or Most Recently Relevant to Health Maintenance Insurance [employer] FEE FOR SERVICE PPO Care Teams Belt Repairer Relationship Specialty Start Date End Date Christa Macedo MD [facility] [address] [facility] [address] [place] [address] PCP - General Pediatrics 02/21/20
--- OUTSIDE RECORDS SUMMARY | 2024-10-13 10:45 | XMS_ITS | Encounter Summary ---
Author Organization [facility] Address [address] [place] [address] Care Team Providers Care Lead Nurse Name Role Phone Luis Carlos Huizar MD Primary Care Provider [phone] Christa Macedo MD Primary Care Provider [phone] Encounter Details Date Type Department Care Team (Late st Contact Info) Description 02/27/2017 Orders Only [place] SWATCH CLERK [address] [place] [address] Sandrine Edgar CRNP [address] [place] [address] Social History Tobacco Use Types Packs/Day Years [...] as of this encounter Progress Notes * Earlene Parks LVN LPN - 03/02/2017 11:43 AM EDT Negative result letter sent to pt. To provider documented in this encounter Plan of Treatment Not on file documented as of this encounter Procedures * Due to [place] [employer] law, this organization might not be sharing negative HIV tests. Procedure Name Priority Date/Time Associated Diagnosis Comments CHLAMYDIA TRACHOMATIS/N. GONORRHOEAE (GC) RNA, TMA (URINE) Routine 02/27/2017 11:15 AM EDT Screening for STD (sexually transmitted disease) HCG, TOTAL, QL Routine 02/27/2017 11:15 AM EDT Irregular menses documented in this encounter Results * Due to [place] [employer] law, this organization might not be sharing negative HIV tests. * CHLAMYDIA TRACHOMATIS/N. GONORRHOEAE (GC) RNA, TMA (URINE) (02/27/2017 11:15 AM EDT) Chlamydia trachomatis rRNA NOT DETECTED NOT DETECTED [facility] Neisseria Gonorrhoeae rRNA NOT DETECTED NOT DETECTED [facility] COMMENT SEE NOTE [facility] Comment: This test was performed using the APTIMA COMBO2 Assay ([employer].). The analytical performance characteristics of this assay, when used to test SurePath specimens have been determined by [employer]. 02/27/2017 11:1 5 AM EDT 02/28/2017 1:20 AM EDT Narrative Resulting Agency Comment [id number] us Sandrine Klejesus [facility] Final Resul t Performing Organization Address [facility] de Phone Number [facility] [address] [place] [address] * HCG, TOTAL, QL (02/27/2017 11:15 AM EDT) HCG, Qualitative (Screen) NEGATIVE [facility] Comment: Reference Range Non-: Negative : ? Positive 02/27/2017 11:1 5 AM EDT 02/28/2017 1:20 AM EDT Narrative Resulting Agency Comment [id number] us Sandrinealy [facility] SAME DAY RESULT Final R esult Performing Organization Address [facility] Co de Phone Number [facility] [address] [place] [address] documented in this encounter Visit Diagnoses Diagnosis Irregular menses Irregular menstrual cycle Screening for STD (sexually transmitted disease) Screening examination for venereal disease documented in this encounter Care Teams Lead Nurse Relationship Specialty Start Date End Date Luis Carlos Huizar MD [facility] [address] [place] [address] PCP - General Pediatrics 05/15/15 02/20/20 Christa Macedo MD [facility] [address] [place] [address] PCP - General Pediatrics 02/21/20 documented as of this encounter
--- OUTSIDE RECORDS SUMMARY | 2024-10-13 10:45 | XMS_ITS | Encounter Summary ---
Author Organization [facility] Address [address] [place] [address] Care Team Providers Care Manager Supply Chain Name Role Phone Luis Carlos Huizar MD Primary Care Provider [phone] Christa Macedo MD Primary Care Provider [phone] Encounter Details Date Type Department Care Team (Late st Contact Info) Description 07/26/2015 Orders Only [place] PASTE MIXER LIQUID [address] [place] [address] Sandrine Edgar CRNP [address] [place] [address] Social History Tobacco Use Types Packs/Day Years [...] Industry Job Start Date Job End Date [employer]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 * Sandrine Edgar CRNP - 07/31/2015 9:18 AM ESTQuick Note: Will need to treat . Try mobile number first as home number is Mom's cell. Partner will need treatment either via his PCP or we can approve expedited partner therapy. I will approve meds once contactmade. documented in this encounter Plan of Treatment Not on file documented as of this encounter Procedures * Due to [place] [employer] law, this organization might not be sharing negative HIV tests. Procedure Name Priority Date/Time Associated Diagnosis Comments CHLAMYDIA TRACHOMATIS/N. GONORRHOEAE (GC) RNA, TMA (APTIMA GENITAL SWAB) Routine 07/26/2015 4:55 PM EST Screening for STD (sexually transmitted disease) BV/VAGINITIS PANELDNA PROBE(AFFIRM) Routine 07/26/2015 4:55 PM EST Screening for STD (sexually transmitted disease) documented in this encounter Results * Due to [place] [employer] law, this organization might not be sharing negative HIV tests. * (ABNORMAL) CHLAMYDIA TRACHOMATIS/N. GONORRHOEAE (GC) RNA, TMA (APTIMA GENITAL SWAB) (07/26/2015 4:55 PM EST) Chlamydia trachomatis rRNA DETECTED(A) NOT DETECTED [facility] Comment: {CHLAMYDIA TRACHOMATIS RNA, TMA {[id number]) A positive CT or NG Nucleic Acid Amplification Test (NAAT) result should be interpreted in conjunction with other laboratory and clinical data available to the clinician. If clinically indicated, further testing can be performed on the same sample using an alternate molecular target. To order alternate target test use 23[address] (C. trachomatis) or 49926 (N. gonorrhoeae). Neisseria Gonorrhoeae rRNA NOT DETECTED NOT DETECTED [facility] Comment:{NEISSERIA GONORRHOE AE RNA, TMA {[id number]) COMMENT SEE NOTE [facility] Comment: {COMMENT {[id number]) This test was performed using the APTIMA COMBO2 Assay ([employer] The analytical performance characteristics of this assay, when used to test SurePath specimens have been determined by [facility]. 07/26/2015 4:55 PM EST 07/26/2015 9:21 PM EST Narrative Resulting Agency Comment [id number] us Sandrine Tala [facility] Final Resul t Performing Organization Address [facility] Co de Phone Number [facility] [address] [place] [address] * BV/VAGINITIS PANELDNA PROBE (07/26/2015 4:55 PM EST) Trichomonas vaginalis rRNA (Genital) NOT DETECTED NOT DETECTED [facility] Comment:{TRICHOMONAS: {[id number]) Gardnerella vaginalis rRNA (Genital) NOT DETECTED NOT DETECTED [facility] Comment:{GARDNERELLA: {[id number]) Kristi sp rRNA (Vag) NOT DETECTED NOT DETECTED [facility] Comment:{KRISTI: {[id number]) 07/26/2015 4:55 PM EST 07/26/2015 9:21 PM EST Narrative Resulting Agency Comment [id number] us Sandrine Tala [facility] Final Resul t Performing Organization Address [facility] Co de Phone Number [facility] [address] [place] [address] documented in this encounter Visit Diagnoses Diagnosis Screening for STD (sexually transmitted disease) Screening examination for venereal disease documented in this encounter Care Teams Manager Supply Chain Relationship Specialty Start Date End Date Luis Carlos Huizar MD [facility] [address] [place] [address] PCP - General Pediatrics 05/15/15 02/20/20 Christa Macedo MD [facility] [address] [place] [address] PCP - General Pediatrics 02/21/20 documented as of this encounter
== END 2024-10-13 10:47 | disposition home or self-care (01) ==
PROVIDERS: PCP Internal Medicine; Visit Provider Advanced Practice Midwife
DX: Z30.433 Encounter for removal and reinsertion of intrauterine contraceptive device (principal); Z12.4 Encounter for screening for malignant neoplasm of cervix; Z97.5 Presence of (intrauterine) contraceptive device; E66.01 Morbid (severe) obesity due to excess calories; Z11.3 Encounter for screening for infections with a predominantly sexual mode of transmission; Z32.02 Encounter for pregnancy test, result negative; Z30.430 Encounter for insertion of intrauterine contraceptive device
CPT/HCPCS: 58300; 58301